=== PATIENT | female | born 1990 | race Two or more races ===

== ENCOUNTER → 2019-09-01 | Outpatient (CLI) | payer OTHER | END | disposition home or self-care (01) | LOC: PRENATAL 08-25 10:00 | DX: O35.3XX0 Maternal care for (suspected) damage to fetus from viral disease in mother, not applicable or unspecified (principal); O26.02 Excessive weight gain in pregnancy, second trimester ==

== ENCOUNTER 2019-12-07 16:54 | Emergency (ER) | payer OTHER ==
[~2019-12-07] VITALS: Ht 162.6 cm; Wt 87.1 kg
== END 2019-12-07 19:54 | disposition home or self-care (01) ==
LOC: ER 16:54
DX: J06.9 Acute upper respiratory infection, unspecified (principal); B96.0 Mycoplasma pneumoniae [M. pneumoniae] as the cause of diseases classified elsewhere

== ENCOUNTER 2020-01-11 18:20 | Inpatient (IN) | payer OTHER ==
[~2020-01-11] VITALS: Ht 160 cm; Wt 2.7 kg
[2020-01-11] MEDS ORDERED: PRENATAL TABLE1 EAC3 PO (19:18)
== END 2020-01-15 14:21 | disposition home or self-care (01) | DRG 788 ==
LOC: LDR 18:20 → OB/GYN 18:20 → LDR 18:54 → OB/GYN 01-12 19:26
PROVIDERS: ADMIT Obstetrics & Gynecology
PROC: 3E033VJ Introduction of Other Hormone into Peripheral Vein, Percutaneous Approach (ICD-10-PCS; 2020-01-12)
PROC: 4A1HXFZ Monitoring of Products of Conception, Cardiac Rhythm, External Approach (ICD-10-PCS; 2020-01-12)
PROC: 3E0P7VZ Introduction of Hormone into Female Reproductive, Via Natural or Artificial Opening (ICD-10-PCS; 2020-01-12)
PROC: 10D00Z1 Extraction of Products of Conception, Low, Open Approach (ICD-10-PCS; principal; 2020-01-12 17:15)
DX: O32.4XX0 Maternal care for high head at term, not applicable or unspecified (principal); Z3A.39 39 weeks gestation of pregnancy; Z37.0 Single live birth